=== PATIENT | female | born 1990 | race Caucasian/White ===

== ENCOUNTER 2017-10-08 20:33 | Emergency (ER) | payer MEDICAID ==
[~2017-10-08 20:33] MED LIST: LEVO200T4 PO
[2017-10-08] MEDS ORDERED: DEXTROSE 5%-LACTATED RING INJ 1,000 ML IV ONE (21:30)
[2017-10-08] MEDS ORDERED: ONDANSETRON HCL 4 MG/2 ML VIAL IV PUSH ONE ×2 (21:30)
[2017-10-08 22:17] LABS: HEMATOCRIT 33.5 % (35.0-46.0); HEMOGLOBIN 11.6 GM/DL (11.6-15.3); MEAN CELL VOLUME 87.3 FL (80.0-100.0); MEAN CORPUSCULAR HEMOGLOBIN 30.3 PG (27.0-34.0); MEAN CORPUSCULAR HGB CONC 34.7 % (32.0-36.0); MEAN PLATELET VOLUME 7.9 FL (7.0-11.0); PLATELET COUNT 196 TH/MM3 (150-450); RED BLOOD COUNT 3.84 MIL/MM3 (4.00-5.30); RED CELL DISTRIBUTION WIDTH 13.2 % (11.6-17.2)
--- NOTE | 2017-10-08 22:19 | PD ---
HPI Chief Complaint Nausea, vomiting, abdominal pain Travel History International Travel<30 Days: No Contact w/Intl Traveler<30Days: No Known Affected Area: No History of Present Illness HPI 26 year 4 para 0030, IUP at 25.1 care complicated by late care, asthma, chronic hypertension, obesity The patient presents complaining of daily nausea which resulted in emesis 2 4 AM today she reports 8 AM she felt 1 episode of sharp and stabbing pain. She also reports that since then she has not constant cramping pain that waxes and wanes and occurs about 1 time every 2 hours. She reports she's been able to keep liquids down this evening. She reports that she started feeling ill earlier with fever and chills however did not documented temperature. She denies any L contacts. She denies any diarrhea. She reports good movement. She denies any leaking of fluid or vaginal bleeding. She denies any painful contractions. There are no aggravating or alleviating factors to her symptoms and no attempted treatments. Weeks Gestation: 25 Para: 0 : 4 Miscarriage: 3 History Past Medical History Narrative Medical Obesity, asthma, chronic hypertension Obstetric History Obstetric History , SAB 3 Past Surgical History Surgical History: No Previous Surgery Family History Family History: Negative Social History Alcohol Use: No Tobacco Use: No Substance Abuse: No Allergies-Medications (Allergen,Severity, Reaction): Coded Allergies: thyroid (Unverified Allergy, Severe, 05/01/17) thyroid, pork (Unverified Allergy, Severe, 05/01/17) Home Meds Reported Medications Levothyroxine (Levothyroxine) 200 Mcg Tab, 200 MCG PO DAILY for Thyroid, #30 TAB 0 Refills 09/11/16 Review of Systems Except as stated in HPI: all other systems reviewed are Neg General / Constitutional: Fever, Chills Eyes: No: Diploplia, Blurred Vision, Visual changes, Pain, Photophobia, Other HENT: Headaches, No: Vertigo, Dental Difficulties, Lightheadedness, Other Cardiovascular: No: Irregular Rhythm, Chest Pain or Discomfort, Palpitations, Tachycardia, Syncope, Varicosities, Edema, Cyanosis, Other Respiratory: No: Cough, Short of Breath, Wheezing, Other Gastrointestinal: Nausea, Vomiting, Abdominal Pain, No: Diarrhea, Hematemesis, Hematochezia, Constipation, Changes in Bowel Habits, Indigestion, Loss of Appetite, Other Genitourinary: No: Urgency, Frequency, Dysuria, Nocturia, Hematuria, Decreased Urinary Output, Oliguria, Hesitancy, Dribbling, Incontinence, Pelvic Pain, Dyspareunia, Discharge, Menorrhagia, Vaginal Bleeding, Other Musculoskeletal: No: Limited ROM, Weakness, Cramping, Edema, Pain, Other Skin: No Rash, No Itching, No Dryness, No Lumps, No Change in Pigmentation, No Change in Nails, No Alopecia, No Lesions, No Breast Lumps, No Breast Tenderness , No Breast Swelling, No Other Neurologic: No: Weakness, Dizziness, Syncope, Focal Abnormalities, Coordination Problem, Headache, Slurred Speech, Seizures, Other Psychiatric: No: Anxiety, Depression, Suicidal Ideations, Disorder of Thought, Mood Disorder, Substance Abuse, Homicidal Ideation, Other Endocrine: No: Heat Intolerance, Cold Intolerance, Polydipsia, Polyuria, Other Hematologic/Lymphatic: No Easy Bruising, No Lymph Node Enlargement, No Other Physical Exam Narrative GENERAL: Well-nourished, well-developed patient. SKIN: Warm and dry. HEAD: Normocephalic and atraumatic. EYES: No scleral icterus. No injection or drainage. ENT: No nasal drainage noted. Mucous membranes pink. Airway patent. NECK: Supple, trachea midline. No JVD. CARDIOVASCULAR: Regular rate and rhythm without murmurs, gallops, or rubs. RESPIRATORY: Breath sounds equal bilaterally. No accessory muscle use. BREASTS: Deferred ABDOMEN/GI: Abdomen soft, non-tender, bowel sounds present, no rebound, no guarding Gravid GENITOURINARY: External Genitalia: intact and normal in appearance. Normal BUS. No cervical or vaginal masses appreciated, grossly normal rugae, physiologic discharge, fibronectin was obtained. SVE closed/thick/high/posterior Uterine Contractions: Uterine irritability noted FHT's: heart tones are in the 130s to 140s with moderate long-term variability and no decelerations. There are accelerations noted and the heart tracing is reassuring and appropriate for gestational age EXTREMITIES: No cyanosis or edema. BACK: Nontender without obvious deformity. NEUROLOGICAL: Awake and alert. Motor and sensory grossly within normal limits. Normal speech. Psychiatric: Grossly normal memory/affect Muscle skeletal: Grossly normal range of motion, gait, muscle strength Data Data Orders Orders Vital Signs (Adult) .ON ADMISSION (10/08/17 21:19) ^ Labor Status (10/08/17 21:19) Urinalysis - C+S If Indicated (10/08/17 21:19) ^ Non Stress Test (10/08/17:) Cbc No Diff, Includes Plts (10/08/17 21:19) Comprehensive Metabolic Panel (10/08/17 21:19) Ondansetron Inj (Zofran Inj) (10/08/17 21:30) Ondansetron Inj (Zofran Inj) (10/08/17 21:30) Dextrose 5%-Lactated Ring Inj (D5-Lr Inj (10/08/17 21:30) Fibronectin (10/08/17:20) Influenzae A/B Antigen (10/08/17:20) MDM Plan Assessment/plan: 1. IUP at 25.1 2. Nausea/vomiting: Patient reports she feels better after receiving 1 L of IV fluids and Zofran. Potassium 3.5 so 40 mEq given by mouth. Strict nausea and vomiting precautions. Zofran 4 mg ODT Rx for #20 given. 3. Uterine irritability: No evidence of labor with closed cervix and negative fibronectin. Uterine irritability resolved with 1 L IV fluid. Strict labor precautions 4. Influenza: Patient is positive for influenza. She was given her first dose of Tamiflu 75 mg here with a prescription to continue twice a day 5 days with Rx given for #10. We discussed at length that women are at higher risk of complications from influenza including pneumonia, respiratory distress, and even . We discussed that her symptoms should be monitored closely. However, the patient appears to be stable at this time and has no indication for admission. We discussed at length signs and symptoms that she should return for including any signs of respiratory concern, fevers, nausea/vomiting, and any other concerns. We discussed that her mother should monitor her symptoms closely and return for any worsening symptoms or if there is no improvement within the next 24 hours. The patient and her mother expressed understanding any knowledge the potential complications of the flu and verbalize that they would return for any worsening symptoms or lack of improvement. 5. well-being: Reassuring testing with heart rate tracing is reassuring and appropriate for gestational age. kick counts daily 6. Obesity 7. Chronic hypertension 8. Late care 9. Follow up with primary OB in 1-2 days or sooner if needed Diagnosis Diagnosis: Primary Impression: 26 weeks gestation of Additional Impression: Influenza Disposition: 01 DISCHARGE HOME Condition: Good Additional Instructions: F/U with primary ob in 1-2d, return if any worsening of condition or no improvement within 24h. Strict influenza precautions. Bethany Cummins MD Oct 08, 2017 22:19
[2017-10-08 22:21] LABS: BACTERIA, URINE RARE /hpf; BILIRUBIN, URINE NEG (NEG); BLOOD, URINE SMALL (NEG); GLUCOSE,URINE NEG (NEG); KETONE, URINE NEG (NEG); MUCUS URINE FEW /lpf (OCC); NITRITE,URINE NEG (NEG); PH, URINE 6.5 (5.0-8.5); SQUAMOUS EPITHELIAL CELL URINE 9 /hpf (0-5); URINE COLOR YELLOW (YELLW/STRAW); URINE LEUKOCYTE ESTERASE TRACE (NEG)
[2017-10-08 22:40] LABS: ALBUMIN 2.9 GM/DL (3.4-5.0); AST (GOT) 32 U/L (15-37); BICARBONATE 21.7 MEQ/L (21.0-32.0); BLOOD UREA NITROGEN 7 MG/DL (7-18); CALCIUM 8.4 MG/DL (8.5-10.1); CHLORIDE 108 MEQ/L (98-107); CREATININE 0.88 MG/DL (0.50-1.00); GLOMERULAR FILTRATION RATE 78 ML/MIN (>89); GLUCOSE,RANDOM 83 MG/DL (74-106); SODIUM (NA) 137 MEQ/L (136-145)
[2017-10-08 22:41] LABS: ALT (GPT) 40 U/L (10-53)
[2017-10-08 22:43] LABS: ALKALINE PHOSPHATASE 104 U/L (45-117); TOTAL BILIRUBIN ADULT 0.2 MG/DL (0.2-1.0); TOTAL PROTEIN 6.9 GM/DL (6.4-8.2)
[2017-10-08] MEDS ORDERED: OSELTAMIVIR PHOSPHATE 75 MG CAP PO ONE (22:45)
[2017-10-08] MEDS ORDERED: ACETAMINOPHEN 500 MG CPLT PO ONE (23:00)
[2017-10-09] MEDS ORDERED: POTASSIUM CHLORIDE 20 MEQ CONTROLLED RELEASE TAB PO SCH (09:00)
== END 2017-10-08 23:47 | disposition home or self-care (01) ==
LOC: HOBED 20:33
DX: O99.512 Diseases of the respiratory system complicating pregnancy, second trimester (principal); J11.1 Influenza due to unidentified influenza virus with other respiratory manifestations; J45.909 Unspecified asthma, uncomplicated; O99.212 Obesity complicating pregnancy, second trimester; O16.2 Unspecified maternal hypertension, second trimester; Z3A.25 25 weeks gestation of pregnancy
CPT/HCPCS: 80053; 81001; 82731; 85027; 87804; 96361; 96374; 99284; J2405; J7121

== ENCOUNTER 2018-01-03 18:26 | Emergency (ER) | payer MEDICAID ==
[2018-01-03 19:20] LABS: BILIRUBIN, URINE NEG (NEG); BLOOD, URINE TRACE (NEG); GLUCOSE,URINE NEG (NEG); KETONE, URINE NEG (NEG); MUCUS URINE FEW /lpf (OCC); NITRITE,URINE NEG (NEG); SQUAMOUS EPITHELIAL CELL URINE 4 /hpf (0-5); URINE COLOR LIGHT-YELLOW (YELLW/STRAW); URINE LEUKOCYTE ESTERASE NEG (NEG)
--- NOTE | 2018-01-03 19:25 | PD ---
HPI Chief Complaint spotting, cramping Date Seen: Jan 03, 2018 Time Seen: 19:19 Travel History International Travel<30 Days: No Contact w/Intl Traveler<30Days: No Known Affected Area: No History of Present Illness HPI 27y/o @ 37.6wks. She has PN in [place]. She presents for evaluation of spotting/cramping. She reports that these symptoms started after she was seen yesterday at [facility] and had a cervical check. She denies LOF or ctx. +FM. Weeks Gestation: 37 Para: 0 : 4 History Past Medical History Narrative Medical ?thyroid "cancer" Obstetric History Obstetric History SAB x3 (s/p workup "with a specialist") Past Surgical History Narrative Surgical thyroidectomy Family History Family History: Negative Social History Alcohol Use: No Tobacco Use: No Substance Abuse: No Allergies-Medications (Allergen,Severity, Reaction): Coded Allergies: thyroid (Unverified Allergy, Severe, 05/01/17) thyroid, pork (Unverified Allergy, Severe, 05/01/17) Home Meds Reported Medications Levothyroxine (Levothyroxine) 200 Mcg Tab, 200 MCG PO DAILY for Thyroid, #30 TAB 0 Refills 09/11/16 Review of Systems Except as stated in HPI: all other systems reviewed are Neg Physical Exam Narrative General: well developed, well nourished, no acute distress HEENT: normocephalic atraumatic, extraocular movements intact, neck supple Abdomen: soft, gravid, nontender, nondistended Uterus: fundus term Extremities: full range of motion Skin: normal coloration, no rashes, no suspicious skin lesions noted Neurologic: cranial nerves 2-12 grossly intact, normal muscle tone, normal gait Psychiatric: normal mood and affect, appropriate FHTs: 125, +accels, no decels, moderate variability, reactive [place]: irregular ctx Cvx: (unchanged from yesterday's hospital visit) Data Data Vital Signs Reviewed: Yes Orders Orders Vital Signs (Adult) .ON ADMISSION (01/03/18 19:07) ^ Labor Status (01/03/18 19:07) Urinalysis - C+S If Indicated (01/03/18 19:07) ^ Non Stress Test (01/03/18 19:07) Ed Discharge Order (01/03/18 19:18) Group B Strep: Negative Labs Laboratory Tests Test 01/03/18 18:50 MDM Plan 27y/o @ 37.6wks with cramping/spotting -- NST reactive -- toco with irregular ctx -- UA with trace RBCs -- cvx unchanged Dispo: reassured pt that spotting is normal with cervical ripening and s/p multiple exams yesterday; stable for d/c home with precautions Diagnosis Diagnosis: Primary Impression: 37 weeks gestation of Additional Impressions: Spotting affecting in third trimester Cramping affecting , antepartum Karla Perez MD Jan 03, 2018 19:25
== END 2018-01-03 19:34 | disposition home or self-care (01) ==
LOC: HOBED 18:26
DX: O26.853 Spotting complicating pregnancy, third trimester (principal); O26.893 Other specified pregnancy related conditions, third trimester; Z3A.37 37 weeks gestation of pregnancy
CPT/HCPCS: 59025; 81001

== ENCOUNTER 2018-01-20 17:52 | Emergency (ER) | payer MEDICAID ==
--- NOTE | 2018-01-20 20:20 | PD ---
HPI Chief Complaint Pelvic pain Date Seen: January 20, 2018 Time Seen: 20:15 Travel History International Travel<30 Days: No Contact w/Intl Traveler<30Days: No Known Affected Area: No History of Present Illness HPI 27-year-old at 40 weeks gestation today comes in complaining of pelvic pain. She obtains her care in office in [place] and was set up for an induction today. She states she felt that it was too late in the day and that [place] was too far away and did not go to her induction they rescheduled her for for an induction at [facility]. has been uncomplicated although she has hypothyroidism on replacement. Patient states that she has a history of chronic hypertension but her blood pressures been normal this has not required medication. She states she has been having pelvic pain pretty consistently when she sits down to have a bowel movement that resolves when she is finished. No blood in stools patient denies frequency and denies dysuria. 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 SKIN: Warm and dry. HEAD: Normocephalic and atraumatic. EYES: No scleral icterus. No injection or drainage. ENT: No nasal drainage noted. Mucous membranes pink. Airway patent. NECK: Supple, trachea midline. No JVD. CARDIOVASCULAR: Regular rate and rhythm without murmurs, gallops, or rubs. RESPIRATORY: Breath sounds equal bilaterally. No accessory muscle use. ABDOMEN/GI: Abdomen soft, non-tender, bowel sounds present, no rebound, no guarding Gravid to [-38] weeks size Fundal Height: [-] GENITOURINARY: External Genitalia: intact and normal in appearance BUS glands: [Normal-] Cervix: [Posterior-] Dilatation: [1-] Effacement: [Thick-] Station: [-High] Presentation: [Vertex-] Membranes: [intact or ruptured] intact Uterine Contractions: [-] Absent FHT's: Category: [-] 1 Baseline: [-] 140 Reactive: [-] Moderate Variability: [-] Moderate Decels: [-] Absent EXTREMITIES: No cyanosis or edema. BACK: Nontender without obvious deformity. No CVA tenderness. NEUROLOGICAL: Awake and alert. Motor and sensory grossly within normal limits. Five out of 5 muscle strength in all muscle groups. Normal speech. Data Data Vital Signs Reviewed: Yes [facility] Medical Record Reviewed: Yes Plan 27-year-old at 40 weeks gestation today Suspect that her pelvic pain during bowel movements are secondary to compression of the rectum due to from the uterus Follow-up on to her induction appointment as already scheduled Diagnosis Diagnosis: Primary Impression: 40 weeks gestation of Additional Impressions: Hypothyroidism affecting in third trimester Pelvic pain affecting in third trimester, antepartum Disposition: DISCHARGE HOME Vero Avendaño MD January 20, 2018 20:20
== END 2018-01-20 20:42 | disposition home or self-care (01) ==
LOC: HOBED 17:52
DX: O26.893 Other specified pregnancy related conditions, third trimester (principal); R10.2 Pelvic and perineal pain; E03.9 Hypothyroidism, unspecified; O99.283 Endocrine, nutritional and metabolic diseases complicating pregnancy, third trimester; Z3A.40 40 weeks gestation of pregnancy
CPT/HCPCS: 59025